=== PATIENT | male | born 1945 | race Caucasian/White ===

== ENCOUNTER 2016-03-14 21:05 | Emergency (ER) | payer MEDICARE ==
[~2016-03-14] VITALS: Ht 175.2 cm; Wt 59.9 kg
[~2016-03-14 21:05] MED LIST: ASPIRIN81 M1 PO; ATENOLOL100 MG PO; CARAFATE1 G1 PO; CARVEDILOL3.125 MG PO; GLIPIZIDE10 MG PO; GLIPIZIDE5 MG PO; LISINOPRIL/HCTZ1 TA2 PO; MELOXICAM7.5 MG PO; METFORMIN1000 MG PO; MOBIC7.5 MG PO; NIACIN500 MG PO; PLAVIX75 M1 PO; PRAVASTATIN SOD40 MG PO; PREDNICOT20 MG PO; VICODIN 5/500 505 MG PO; VITAMIN D400 I1 PO; WARFARIN SOD5 MG PO; WARFARIN SODIUM6 MG PO; ZESTRIL10 MG PO; ZESTRIL20 MG PO; ZOCOR5 MG PO
[2016-03-14] MEDS ORDERED: ZESTRIL20 MG PO (21:18)
[2016-03-14] MEDS ORDERED: METFORMIN500 MG PO (21:19)
[2016-03-14] MEDS ORDERED: COUMADIN2.5 MG PO (21:20)
[2016-03-14] MEDS ORDERED: COUMADIN5 M2 PO (21:20)
[2016-03-14] MEDS ORDERED: PROAIR HFA8.5 GM INH (21:21)
[2016-03-14] MEDS ORDERED: SYMBICORT1 AE1 INH (21:21)
[2016-03-14 21:29] LABS: BASO # 0.1 10*3/uL (0.0-0.1); BASO % 0.6 % (0.0-1.0); EOS # 0.3 10*3/uL (0.0-0.4); EOS % 3.4 % (1.0-4.0); HEMATOCRIT 38.2 % (42.0-52.0); HEMOGLOBIN 12.6 g/dl (14.0-18.0); LYMPH # 2.1 10*3/uL (1.3-4.4); LYMPH % 26.3 % (27.0-41.0); MEAN CELL VOLUME 91.6 fl (80.0-94.0); MEAN CORPUSCULAR HGB 30.2 pg (27.0-31.0); MEAN PLATELET VOLUME 9.2 fl (9.6-12.3); MONO # 0.7 10*3/uL (0.1-1.0); MONO % 8.6 % (3.0-9.0); NEUT # 4.8 10*3/uL (2.3-7.9); NEUT % 60.7 % (47.0-73.0); PLATELET COUNT AUTOMATED 191 10*3/uL (130-400); RED BLOOD COUNT 4.17 10*6/uL (4.50-5.90); RED CELL DISTRI WIDTH 15.5 % (0-14.5); WHITE BLOOD COUNT 7.9 10*3/uL (4.8-10.8)
[2016-03-14 21:40] LABS: INTERNATIONAL NORM RATIO 1.3 (2.0-3.5); PROTHROMBIN TIME 14.3 SECONDS (9.0-12.4)
[2016-03-14 21:41] LABS: BUN 20 mg/dl (7-24); CARBON DIOXIDE 26 mmol/L (21-32); CHLORIDE 105 mmol/L (98-107); EST GLOM FILT AFRICAN AMERICAN > 60 ml/min; GLUCOSE 141 mg/dL (65-99); POTASSIUM 4.3 mmol/L (3.5-5.1); SODIUM 141 mmol/L (136-145)
[2016-03-14] MEDS ORDERED: OCEAN104 ML NS (23:07)
[2016-03-14] MEDS ORDERED: ROBITUSSIN AC 110 ML PO (23:07)
[2016-03-14] MEDS ORDERED: AUGMENTIN 875875 MG PO (23:07)
[2016-04-10] MEDS ORDERED: LASIX40 MG PO (20:46)
[2016-04-10] MEDS ORDERED: PANTOPRAZOLE SO40 MG PO (20:47)
[2016-04-10] MEDS ORDERED: ALDACTONE25 M1 PO (20:47)
[2016-04-10] MEDS ORDERED: TOPROL XL50 M1 PO (20:47)
== END 2016-03-14 23:35 | disposition home or self-care (01) ==
LOC: ED 21:05
PROVIDERS: Emergency Medicine Emergency Medical Services
DX: R04.0 Epistaxis (principal); D68.8 Other specified coagulation defects; I48.91 Unspecified atrial fibrillation; F17.200 Nicotine dependence, unspecified, uncomplicated; Z79.01 Long term (current) use of anticoagulants; Z79.899 Other long term (current) drug therapy

== ENCOUNTER → 2017-06-05 | Outpatient (CLI) | payer OTHER ==
[~2017-06-05] MED LIST changes: +ALDACTONE25 M1 PO; +AUGMENTIN 875875 MG PO; +COUMADIN2.5 MG PO; +COUMADIN5 M2 PO; +LASIX40 MG PO; +METFORMIN500 MG PO; +OCEAN104 ML NS; +PANTOPRAZOLE SO40 MG PO; +PROAIR HFA8.5 GM INH; +ROBITUSSIN AC 110 ML PO; +SYMBICORT1 AE1 INH; +TOPROL XL50 M1 PO
[2017-06-05 09:41] LABS: ALBUMIN 3.6 gm/dl (3.1-4.5); BUN 12 mg/dl (7-24); CHLORIDE 102 mmol/L (98-107); CREATININE 0.88 mg/dL (0.70-1.30); PHOSPHOROUS 3.3 mg/dL (2.5-4.9); POTASSIUM 3.7 mmol/L (3.5-5.1); SODIUM 140 mmol/L (136-145)
[2017-06-05 10:05] LABS: INTERNATIONAL NORM RATIO 2.5 (2.0-3.5)
== END | disposition home or self-care (01) ==
LOC: LAB 08:53
PROVIDERS: Internal Medicine
DX: I25.810 Atherosclerosis of coronary artery bypass graft(s) without angina pectoris (principal); N18.2 Chronic kidney disease, stage 2 (mild); E11.22 Type 2 diabetes mellitus with diabetic chronic kidney disease; Z79.01 Long term (current) use of anticoagulants

== ENCOUNTER → 2017-07-29 | Outpatient (CLI) | payer OTHER ==
[2017-07-29 10:38] LABS: INTERNATIONAL NORM RATIO 1.8 (2.0-3.5)
== END | disposition home or self-care (01) ==
LOC: LAB 09:58
PROVIDERS: Internal Medicine
DX: I25.810 Atherosclerosis of coronary artery bypass graft(s) without angina pectoris (principal); Z79.01 Long term (current) use of anticoagulants

== ENCOUNTER → 2017-09-03 | Outpatient (CLI) | payer OTHER ==
[2017-09-03 11:08] LABS: INTERNATIONAL NORM RATIO 2.3 (2.0-3.5)
== END | disposition home or self-care (01) ==
LOC: LAB 10:15
PROVIDERS: Internal Medicine
DX: I25.810 Atherosclerosis of coronary artery bypass graft(s) without angina pectoris (principal); Z79.01 Long term (current) use of anticoagulants

== ENCOUNTER → 2017-10-08 | Outpatient (CLI) | payer OTHER ==
[2017-10-08 11:22] LABS: INTERNATIONAL NORM RATIO 1.8 (2.0-3.5)
== END | disposition home or self-care (01) ==
LOC: LAB 10:28
PROVIDERS: Internal Medicine
DX: I25.810 Atherosclerosis of coronary artery bypass graft(s) without angina pectoris (principal); Z79.01 Long term (current) use of anticoagulants

== ENCOUNTER → 2017-12-11 | Outpatient (CLI) | payer OTHER ==
[2017-12-11 11:02] LABS: BASO % 0.5 % (0.0-1.0); EOS # 0.2 10*3/uL (0.0-0.4); EOS % 1.8 % (1.0-4.0); HEMATOCRIT 41.5 % (42.0-52.0); HEMOGLOBIN 13.3 g/dl (14.0-18.0); LYMPH # 2.1 10*3/uL (1.3-4.4); LYMPH % 26.1 % (27.0-41.0); MEAN CELL VOLUME 95.6 fl (80.0-94.0); MEAN CORPUSCULAR HGB 30.6 pg (27.0-31.0); MEAN PLATELET VOLUME 9.5 fl (9.6-12.3); MONO # 0.7 10*3/uL (0.1-1.0); MONO % 8.5 % (3.0-9.0); NEUT # 5.1 10*3/uL (2.3-7.9); NEUT % 62.7 % (47.0-73.0); PLATELET COUNT AUTOMATED 203 10*3/uL (130-400); RED BLOOD COUNT 4.34 10*6/uL (4.50-5.90); WHITE BLOOD COUNT 8.2 10*3/uL (4.8-10.8)
[2017-12-11 11:37] LABS: ALBUMIN 3.8 gm/dl (3.1-4.5); ALKALINE PHOSPHATASE 67 U/L (45-117); BILIRUBIN, DIRECT < 0.1 mg/dL (0.0-0.2); BUN 18 mg/dl (7-24); CHLORIDE 104 mmol/L (98-107); CHOLESTEROL 115 mg/dL (<200); CREATININE 0.96 mg/dL (0.70-1.30); HDL CHOLESTEROL 38 mg/dl (40-60); LDL CHOLESTEROL 62 mg/dL (9-159); PHOSPHOROUS 3.2 mg/dL (2.5-4.9); SGOT/AST 11 IU/L (3-35); SGPT/ALT 14 U/L (12-78); SODIUM 139 mmol/L (136-145); TOTAL PROTEIN 7.7 gm/dL (6.4-8.2); TRIGLYCERIDES 73 mg/dl (<150); VLDL CHOLESTEROL 15 mg/dL (6-40)
[2017-12-11 11:47] LABS: INTERNATIONAL NORM RATIO 1.7 (2.0-3.5)
== END | disposition home or self-care (01) ==
LOC: LAB 10:32
PROVIDERS: Internal Medicine
DX: I25.810 Atherosclerosis of coronary artery bypass graft(s) without angina pectoris (principal); N18.2 Chronic kidney disease, stage 2 (mild); I70.212 Atherosclerosis of native arteries of extremities with intermittent claudication, left leg; Z79.01 Long term (current) use of anticoagulants

== ENCOUNTER → 2017-12-30 | Outpatient (CLI) | payer OTHER ==
[2017-12-30 12:12] LABS: INTERNATIONAL NORM RATIO 1.8 (2.0-3.5)
== END | disposition home or self-care (01) ==
LOC: LAB 10:23
PROVIDERS: Internal Medicine
DX: I25.810 Atherosclerosis of coronary artery bypass graft(s) without angina pectoris (principal); Z79.01 Long term (current) use of anticoagulants

== ENCOUNTER → 2018-04-23 | Outpatient (CLI) | payer OTHER ==
[2018-04-23 10:00] LABS: INTERNATIONAL NORM RATIO 2.3 (2.0-3.5)
== END | disposition home or self-care (01) ==
LOC: LAB 08:49
PROVIDERS: Internal Medicine
DX: I25.810 Atherosclerosis of coronary artery bypass graft(s) without angina pectoris (principal); Z79.01 Long term (current) use of anticoagulants

== ENCOUNTER → 2018-12-01 | Outpatient (CLI) | payer OTHER | END | disposition home or self-care (01) | LOC: LAB 09:58 | PROVIDERS: Internal Medicine | DX: I25.810 Atherosclerosis of coronary artery bypass graft(s) without angina pectoris (principal); Z79.01 Long term (current) use of anticoagulants ==

== ENCOUNTER 2019-03-19 00:23 | Inpatient (IN) | payer OTHER ==
[2019-03-19] VITALS (25 sets, daily range): BP systolic 90–137; BP diastolic 41–80
[~2019-03-19] VITALS: Ht 175.2 cm; Wt 59.2 kg
[2019-03-19 00:51] LABS: BASO # 0.1 10*3/uL (0.0-0.1); BASO % 0.3 % (0.0-1.0); EOS % 0.1 % (1.0-4.0); HEMATOCRIT 26.1 % (42.0-52.0); HEMOGLOBIN 8.3 g/dl (14.0-18.0); LYMPH # 1.2 10*3/uL (1.3-4.4); LYMPH % 7.1 % (27.0-41.0); MEAN CELL VOLUME 89.1 fl (80.0-94.0); MEAN CORPUSCULAR HGB 28.3 pg (27.0-31.0); MEAN CORPUSCULAR HGB CONC 31.8 g/dl (33.0-37.0); MEAN PLATELET VOLUME 9.5 fl (9.6-12.3); MONO # 1.3 10*3/uL (0.1-1.0); MONO % 7.6 % (3.0-9.0); NEUT # 14.7 10*3/uL (2.3-7.9); NEUT % 83.7 % (47.0-73.0); PLATELET COUNT AUTOMATED 551 10*3/uL (130-400); RED BLOOD COUNT 2.93 10*6/uL (4.50-5.90); RED CELL DISTRI WIDTH 15.3 % (0-14.5); WHITE BLOOD COUNT 17.5 10*3/uL (4.8-10.8)
[2019-03-19 01:11] LABS: ALBUMIN 2.2 gm/dl (3.1-4.5); ALKALINE PHOSPHATASE 89 U/L (45-117); BUN 18 mg/dl (7-24); CHLORIDE 96 mmol/L (98-107); CREATININE 0.91 mg/dL (0.70-1.30); POTASSIUM 3.1 mmol/L (3.5-5.1); SGOT/AST 34 IU/L (3-35); SGPT/ALT 23 U/L (12-78); SODIUM 132 mmol/L (136-145); TOTAL PROTEIN 7.2 gm/dL (6.4-8.2)
[2019-03-19 01:18] LABS: TROPONIN I 0.022 ng/ml (<0.045)
[2019-03-19 01:21] LABS: ACT PARTIAL THROMBO TIME 92.2 SECONDS (20.0-32.1); INTERNATIONAL NORM RATIO 9.3 (2.0-3.5)
--- NOTE | 2019-03-19 01:23 | NUR ---
ED DOC WAS NOTIFIED OF THE CRITICAL APTT, PT, AND INR OF TH PATIENT.
--- NOTE | 2019-03-19 02:40 | NUR ---
A 73, admitted to , under the services of SHELLY Savage DO with a diagnosis of COUMADIN TOXICITY, CHF, PNEUMONIA, ATRIAL FIB WITH RVR. Chief complaint is SOB. Patient arrived via bed from ER. Monitor applied. Initial assessment completed. Vital signs taken and recorded. SHELLY SAVAGE DO notified of admission to the unit. Orders received. See assessment for past medical history, medications and allergies. Patient and/or family oriented to unit. [facility]U visitation policy reviewed. Clothing/patient valuable form completed. LUCIANO GUTIERREZ
--- NOTE | 2019-03-19 03:10 | NUR ---
CALLED DR LOPEZ TO INFORM HER THAT THE MEDICATION LIST IS UPDATED PER THE PT KNOWLEDGE, WILL CALL SATISH IN THE MORNING FOR UPDATED LIST. ALSO TOLD HER THAT PT HR IS 98 PER CM. WILL CONTINUE TO MONITOR
--- NOTE | 2019-03-19 04:01 | NUR ---
CALLED DR LOPEZ REFERING THE PATIENTS TROPONIN LEVEL READING 0.155. SHE STATES 'OK' AND WANTS ME TO TELL CARDIOLOGY WHEN I CALL FOR THE CONSULT
--- NOTE | 2019-03-19 04:02 | NUR ---
CONSULT FOR DR RANDHAWA LEFT ON ANSWERING SERVICE. UPDATED THEM OF TROPONIN LEVELS ALONG WITH REASON FOR CONSULT
[2019-03-19 06:51] LABS: HEMATOCRIT 23.6 % (42.0-52.0); HEMOGLOBIN 7.6 g/dl (14.0-18.0); MEAN CELL VOLUME 89.4 fl (80.0-94.0); MEAN CORPUSCULAR HGB 28.8 pg (27.0-31.0); MEAN CORPUSCULAR HGB CONC 32.2 g/dl (33.0-37.0); MEAN PLATELET VOLUME 9.6 fl (9.6-12.3); PLATELET COUNT AUTOMATED 462 10*3/uL (130-400); RED BLOOD COUNT 2.64 10*6/uL (4.50-5.90); RED CELL DISTRI WIDTH 15.3 % (0-14.5); WHITE BLOOD COUNT 14.3 10*3/uL (4.8-10.8)
[2019-03-19 07:05] LABS: BUN 22 mg/dl (7-24); CHLORIDE 96 mmol/L (98-107); CREATININE 0.88 mg/dL (0.70-1.30); POTASSIUM 3.8 mmol/L (3.5-5.1); SODIUM 132 mmol/L (136-145)
[2019-03-19 07:09] LABS: CHOLESTEROL 83 mg/dL (<200); HDL CHOLESTEROL 9 mg/dl (40-60); LDL CHOLESTEROL 55 mg/dL (9-159); TRIGLYCERIDES 93 mg/dl (<150); VLDL CHOLESTEROL 19 mg/dL (6-40)
[2019-03-19 07:19] LABS: INTERNATIONAL NORM RATIO > 9.3 (2.0-3.5)
--- NOTE | 2019-03-19 07:33 | NUR ---
NOTIFIED OF CRITICAL ANTICOAGs. SAID HE WOULD LOOK AT THE CHART. INFORMED THAT 1MG OF VITAMIN K WAS GIVEN THIS AM ARND 0330.
[2019-03-19 07:40] LABS: PLATELET SUFFICIENCY NORMAL (NORMAL); TOTAL CELLS COUNTED 100 #CELLS
--- NOTE | 2019-03-19 08:01 | NUR ---
NOTIFIED OF [facility] . SAID TO NOTIFY CARDIO. MESSAGE LEFT WITH BETSY IN CARDIO. SAID SHE WOULD NOTIFY AND ASK HIM TO CALL ME. AWAITING CALL BACK.
--- NOTE | 2019-03-19 08:14 | NUR ---
TRANSFERRED TO ICCU-5 WITHOUT INCIDENT DUE TO ELEVATED TROPONINS. VSS. REPORT GIVEN TO BINU CHENEY.
--- NOTE | 2019-03-19 08:20 | NUR ---
RECEIVED VIA BED FROM FOR ELEVATED TROPONINS. ON ARRIVAL HE DENIES PAIN "EXCEPT I'M HUNGRY". NO ACUTE RESPIRATORY DISTRESS. MONITOR ATRIAL FLUTTER, VR MID 90'S. SCD'S IN PLACE. PPP. ECHO WAS DONE PRIOR TO HIS TRANSFER. SEE ALL APPROPRIATE INTERVENTIONS.
[2019-03-19 11:35] LABS: INTERNATIONAL NORM RATIO > 9.3 (2.0-3.5)
--- NOTE | 2019-03-19 12:32 | NUR ---
PT HAS BEEN ACCOMPANIED TO RADIOLOGY FOR CT OF CHEST.DR KEVIN HAS BEEN NOTIFIED OF ELEVATED INR. DR STAHL HAS VISITED. VITAMIN K BY MOUTH AND SUBQ HAS BEEN GIVEN FOR ELEVATED INR.
--- NOTE | 2019-03-19 12:51 | NUR ---
Patient identified by arm band by myself and Nicky Leyva. Vital signs recorded. Blood unit number [id number] verified by 2 R.N.'s. I.V. site satisfactory. Unit #1 started at a KVO rate with Normal Saline. BINU FISH L
--- NOTE | 2019-03-19 13:06 | NUR ---
PT IN CONSTANT ATTENDANCE FIRST 15 MINUTES OF TRANSFUSION. NO APPARAENT REACTION. INFUSION RATE INCREASED TO 125/HR.
--- NOTE | 2019-03-19 18:53 | NUR ---
TRANSFUSION WAS COMPLETE AT 1838. PT UP TO [facility] CUSHING – CUSHING TO VOID AND HAD TINY FORMED STOOL. SPECIMEN FOR OCCULT BLOOD OBTAINED AND TAKEN TO THE LAB. HE'S SITTING AT THE SIDE OF THE BED, DOING CROSSWORD PUZZLES.
--- NOTE | 2019-03-19 20:20 | NUR ---
1939 RESTING IN BED WITH HOB ELEVATED. SIDE RAILS UP X'S 2. ALERT AND ORIENTED. STATES " I FEEL A HECK OF A LOT BETTER THAN I DID WHEN I CAME IN." PULSE OX 95% ON 2L 02 VIA NC. HEP LOCK'S INTACT X'S 2 RAN AND ZHANNA. NO DISTRESS NOTED. AFEBRILE.
[2019-03-19 22:22] LABS: BASO % 0.1 % (0.0-1.0); HEMATOCRIT 28.2 % (42.0-52.0); HEMOGLOBIN 9.3 g/dl (14.0-18.0); LYMPH # 0.9 10*3/uL (1.3-4.4); LYMPH % 4.7 % (27.0-41.0); MEAN CELL VOLUME 89.2 fl (80.0-94.0); MEAN CORPUSCULAR HGB 29.4 pg (27.0-31.0); MEAN PLATELET VOLUME 9.9 fl (9.6-12.3); MONO # 0.8 10*3/uL (0.1-1.0); MONO % 4.3 % (3.0-9.0); NEUT # 16.4 10*3/uL (2.3-7.9); NEUT % 89.5 % (47.0-73.0); PLATELET COUNT AUTOMATED 453 10*3/uL (130-400); RED BLOOD COUNT 3.16 10*6/uL (4.50-5.90); RED CELL DISTRI WIDTH 14.7 % (0-14.5); WHITE BLOOD COUNT 18.3 10*3/uL (4.8-10.8)
--- NOTE | 2019-03-19 22:24 | NUR ---
2200 MEDICATED WITH RESTORIL PO REQUESTED FOR SLEEP. WILL MONITOR.
[2019-03-19 22:31] LABS: INTERNATIONAL NORM RATIO 3.7 (2.0-3.5)
[2019-03-20] VITALS: BP 113/63
--- NOTE | 2019-03-20 00:23 | NUR ---
EARLIER RESTORIL EFFECTIVE. RESTING IN BED WITH EYES CLOSED. APPEARS TO BE SLEEPING. 02 INTACT @ 2L. PULSE OX 100%.
[2019-03-20 04:00] VITALS: BP 116/61
[2019-03-20 05:16] LABS: HEMATOCRIT 30.1 % (42.0-52.0); MEAN CORPUSCULAR HGB 28.9 pg (27.0-31.0); MEAN CORPUSCULAR HGB CONC 33.2 g/dl (33.0-37.0); MEAN PLATELET VOLUME 9.8 fl (9.6-12.3); PLATELET COUNT AUTOMATED 525 10*3/uL (130-400); RED BLOOD COUNT 3.46 10*6/uL (4.50-5.90); RED CELL DISTRI WIDTH 14.9 % (0-14.5); WHITE BLOOD COUNT 20.8 10*3/uL (4.8-10.8)
[2019-03-20 05:31] LABS: BUN 31 mg/dl (7-24); CHLORIDE 99 mmol/L (98-107); CREATININE 0.79 mg/dL (0.70-1.30); POTASSIUM 3.7 mmol/L (3.5-5.1); SODIUM 134 mmol/L (136-145)
[2019-03-20 05:43] LABS: INTERNATIONAL NORM RATIO 2.3 (2.0-3.5)
--- NOTE | 2019-03-20 06:12 | NUR ---
SLEPT WELL THIS SHIFT. 02 INTACT. MOIST COUGH CONT. REMAINS AFEBRILE. RESPIRATIONS EASY. NO DISTRESS NOTED. CONDITION GUARDED.
[2019-03-20 06:35] LABS: PLATELET SUFFICIENCY HIGH (NORMAL); TOTAL CELLS COUNTED 100 #CELLS
[2019-03-20 06:36] LABS: POLYCHROMASIA SLIGHT
[2019-03-20 06:37] LABS: OVALOCYTES FEW
[2019-03-20 08:00] VITALS: BP 105/69
[2019-03-20 12:00] VITALS: BP 106/61
--- NOTE | 2019-03-20 13:48 | NUR ---
Director Vaccine in to talk to patient. Patient states lives at home with his and [id number]. There are 6-8 steps in the home. Physician: Dr. Chris Desai [facility]acy: [facility] Home health services: none Patient's level of ADLs: MINIMAL ASSIST Patient has working utilities: yes DME: cane, would like a nebulizer Follow-up physician's appointment after d/c: will be made by the hospitalist nurse director upon discharge Does patient want to access PORTAL?: no Discharge plan discussed with patient. He lives at home with his and [id number]-vet. He is independent in his ADLs and ambulates with a cane. Discussed home health care services and he denies any home needs at this time. When medically stable he will be discharged to home. He would like a nebulizer for home use if needed. He states he will take a taxi home. NOHELIA CRAWFORD
--- NOTE | 2019-03-20 14:11 | NUR ---
I LEFT A MESSAGE ON DR RIBERA'S VOICE MAIL TO MAKE HIM AWARE OF NEW CONSULT ORDER.
[2019-03-20 16:00] VITALS: BP 120/57
[2019-03-20 20:00] VITALS: BP 139/56
--- NOTE | 2019-03-20 22:15 | NUR ---
MEDICATED WITH RESTORIL PER PRN ORDER FOR C/O INSOMNIA.
[2019-03-21] VITALS: BP 157/61
--- NOTE | 2019-03-21 | NUR ---
RSTORIL EFFECTIVE FOR INSOMNIA.
[2019-03-21 03:57] VITALS: BP 108/49
[2019-03-21 06:13] LABS: HEMATOCRIT 29.1 % (42.0-52.0); HEMOGLOBIN 9.4 g/dl (14.0-18.0); MEAN CELL VOLUME 89.3 fl (80.0-94.0); MEAN CORPUSCULAR HGB 28.8 pg (27.0-31.0); MEAN CORPUSCULAR HGB CONC 32.3 g/dl (33.0-37.0); MEAN PLATELET VOLUME 9.8 fl (9.6-12.3); PLATELET COUNT AUTOMATED 495 10*3/uL (130-400); RED BLOOD COUNT 3.26 10*6/uL (4.50-5.90); RED CELL DISTRI WIDTH 15.2 % (0-14.5)
[2019-03-21 06:26] LABS: BUN 27 mg/dl (7-24); CHLORIDE 97 mmol/L (98-107); CREATININE 0.75 mg/dL (0.70-1.30); POTASSIUM 4.1 mmol/L (3.5-5.1); SODIUM 134 mmol/L (136-145)
[2019-03-21 06:59] LABS: TOTAL CELLS COUNTED 100 #CELLS
[2019-03-21 07:00] LABS: OVALOCYTES FEW; PLATELET SUFFICIENCY HIGH (NORMAL); POLYCHROMASIA SLIGHT
[2019-03-21 07:06] LABS: INTERNATIONAL NORM RATIO 1.7 (2.0-3.5)
[2019-03-21 08:00] VITALS: BP 102/52
--- NOTE | 2019-03-21 09:20 | NUR ---
MESSAGE LEFT ON DR GARCIA CELL STEPHEN AM LABS PT REMAINS NPO
[2019-03-21 12:00] VITALS: BP 109/62
[2019-03-21 16:00] VITALS: BP 147/74
[2019-03-21 20:00] VITALS: BP 117/59
--- NOTE | 2019-03-21 20:00 | NUR ---
RESTING IN BED. SKIN PALE, WARM & DRY. 02 INTACT AT 1 LITERS; PULSE OX 98%. LUNGS WITH HARSH BREATH SOUNDS & SOME WHEEZES NOTED. MOIST HARSH PRODUCTIVE COUGH FOR CLEAR SPUTUM PER PT. SCD'S INTACT. HEP LOCK INTACT TO RIGHT ANTECUBITAL; SITE ASYMPTOMATIC. PT. INFORMED THAT HE BRIANA BE NPO FOR AN EGD IN THE MORNING; VERBALIZED UNDERSTANDING. CALL LIGHT WITHIN REACH.
--- NOTE | 2019-03-21 22:00 | NUR ---
BLOOD SGUAR 419; COVERAGE GIVEN PER EMAR.
[2019-03-22] VITALS (8 sets, daily range): BP systolic 102–130; BP diastolic 55–73
[2019-03-22 06:31] LABS: INTERNATIONAL NORM RATIO 1.7 (2.0-3.5)
--- NOTE | 2019-03-22 06:44 | NUR ---
BLOOD SUGAR 185; NO COVERAGE GIVEN. PT. NPO FOR EGD TODAY. GETTING BATHED AT THIS TIME BY PA. VERY SOB WITH ANY EXERTION. 02 AT 3LITERS; PULSE OX 96% HEART RATE IN THE 12O'S. WILL CONTINUE TO MONITOR. PT. VOICES NO C/O AT THIS TIME. CALL LIGHT WITHIN REACH.
[2019-03-22 07:27] LABS: HEMATOCRIT 30.1 % (42.0-52.0); HEMOGLOBIN 9.6 g/dl (14.0-18.0); MEAN CORPUSCULAR HGB 29.4 pg (27.0-31.0); MEAN CORPUSCULAR HGB CONC 31.9 g/dl (33.0-37.0); MEAN PLATELET VOLUME 9.9 fl (9.6-12.3); PLATELET COUNT AUTOMATED 476 10*3/uL (130-400); RED BLOOD COUNT 3.27 10*6/uL (4.50-5.90); RED CELL DISTRI WIDTH 15.3 % (0-14.5); WHITE BLOOD COUNT 17.3 10*3/uL (4.8-10.8)
--- NOTE | 2019-03-22 07:30 | NUR ---
PT SLEEPING IN BED. RESP-EASY AND REGULAR. OXYGEN IN USE. NO C/O AT THIS TIME. CALL LIGHT IN REACH. SEE SHIFT ASSESSMENT.
[2019-03-22 07:32] LABS: ALBUMIN 2.2 gm/dl (3.1-4.5); ALKALINE PHOSPHATASE 84 U/L (45-117); BUN 25 mg/dl (7-24); CHLORIDE 99 mmol/L (98-107); CREATININE 0.61 mg/dL (0.70-1.30); POTASSIUM 4.8 mmol/L (3.5-5.1); SGOT/AST 16 IU/L (3-35); SGPT/ALT 29 U/L (12-78); SODIUM 136 mmol/L (136-145); TOTAL PROTEIN 5.8 gm/dL (6.4-8.2)
[2019-03-22 07:52] LABS: OVALOCYTES FEW; PLATELET SUFFICIENCY HIGH (NORMAL); POLYCHROMASIA SLIGHT; ROULEAUX SLIGHT; SCHISTOCYTES FEW; TOTAL CELLS COUNTED 100 #CELLS
--- NOTE | 2019-03-22 13:00 | NUR ---
PT RESTING IN BED. RESP-EASY AND REGULAR. OXYGEN IN USE. BSG-281, SEE EMAR. TOLERATED ROUTINE MEDS WITH NO PROBLEM. NO C/O AT THIS TIME. CALL LIGHT IN REACH.
--- NOTE | 2019-03-22 17:00 | NUR ---
PT RESTING IN BED. BSG-201, SEE EMAR. NO C/O AT THIS TIME. CALL LIGHT IN REACH. SEE SHIFT ASSESSMENT.
--- NOTE | 2019-03-22 22:30 | NUR ---
IV SITE BLEEDING IN THE LEFT AC. SITE DISCONTINUED. RIGHT AC MAINTAINED. CALL LIGHT WITHIN REACH
--- NOTE | 2019-03-22 22:47 | NUR ---
24 HR chart check completed.
[2019-03-23] VITALS: BP 115/56
--- NOTE | 2019-03-23 03:23 | NUR ---
PATIENT SLEEPING, NO DISTRESS NOTED. CALL LIGHT WITHIN REACH, WILL MONITOR
[2019-03-23 06:18] LABS: BASO % 0.1 % (0.0-1.0); HEMATOCRIT 33.3 % (42.0-52.0); HEMOGLOBIN 10.4 g/dl (14.0-18.0); LYMPH # 0.9 10*3/uL (1.3-4.4); LYMPH % 5.1 % (27.0-41.0); MEAN CELL VOLUME 91.5 fl (80.0-94.0); MEAN CORPUSCULAR HGB 28.6 pg (27.0-31.0); MEAN CORPUSCULAR HGB CONC 31.2 g/dl (33.0-37.0); MEAN PLATELET VOLUME 9.5 fl (9.6-12.3); MONO # 0.6 10*3/uL (0.1-1.0); MONO % 3.3 % (3.0-9.0); NEUT # 16.4 10*3/uL (2.3-7.9); NEUT % 89.9 % (47.0-73.0); PLATELET COUNT AUTOMATED 479 10*3/uL (130-400); RED BLOOD COUNT 3.64 10*6/uL (4.50-5.90); RED CELL DISTRI WIDTH 15.4 % (0-14.5); WHITE BLOOD COUNT 18.3 10*3/uL (4.8-10.8)
[2019-03-23 06:41] LABS: BUN 26 mg/dl (7-24); CHLORIDE 98 mmol/L (98-107); CREATININE 0.75 mg/dL (0.70-1.30); POTASSIUM 4.6 mmol/L (3.5-5.1); SODIUM 132 mmol/L (136-145)
[2019-03-23 07:50] VITALS: BP 120/72
[2019-03-23 08:00] VITALS: BP 120/72
--- NOTE | 2019-03-23 08:00 | NUR ---
PT RESTING IN BED EATING BREAKFAST. RESP-EASY AND REGULAR. NO SOB NOTED ON ROOM AIR. NO C/O AT THIS TIME. CALL LIGHT IN REACH. STUDENT NURSES WITH PT TODAY ALSO.
--- NOTE | 2019-03-23 08:00 | NUR ---
AM ASSESSMENT COMPLETED AND CHARTED. PT IS PLEASANT AND COOPERATIVE. PT IS RESTING IN BED COMFORTABLY. PT HAS NO COMPLAINTS AT THIS TIME. CALL LIGHT WITHIN REACH. EZEQUIEL NAJERACC
[2019-03-23 08:06] LABS: INTERNATIONAL NORM RATIO 1.5 (2.0-3.5)
--- NOTE | 2019-03-23 09:00 | NUR ---
Die Designer Apprentice in to see patient. No new needs or request at this time. Discussed home health care services and he denies any home needs. When medically stable he will be discharged to home. Hgb 10.4. EGD 03/22 showed gastritis, lesions, and hiatal hernia.
--- NOTE | 2019-03-23 10:04 | NUR ---
PT HAS NO COMPLAINTS AT THIS TIME. RESTING COMFORTABLY IN BED. EZEQUIEL VELAZQUEZ [facility] [place]
[2019-03-23 12:00] VITALS: BP 107/59; BP 137/77
--- NOTE | 2019-03-23 12:00 | NUR ---
PATIENT IS SITTING UP IN BED. NO COMPLAINTS AT THIS TIME. WAITING FOR LUNCH TO ARRIVE. EZEQUIEL VELAZQUEZ LADY
--- NOTE | 2019-03-23 13:13 | NUR ---
PT IS RESTING IN BED. NO COMPLAINTS THIS TIME. EZEQUIEL VELAZQUEZ SPLADYCC
--- NOTE | 2019-03-23 13:17 | NUR ---
PT REFUSED BATH. EZEQUIEL VELAZQUEZ SPNRCC
--- NOTE | 2019-03-23 14:45 | NUR ---
GAVE REPORT TO 5E NURSE. PT GOING TO MS FLOOR.
--- NOTE | 2019-03-23 19:00 | NUR ---
ASSUMED CARE FOR THIS PT AT THIS TIME. CONTINUES TO C/O POON. RESTING QUIETLY IN BED. CALL LIGHT IN REACH.
[2019-03-23 20:00] VITALS: BP 132/61
[2019-03-24] VITALS (7 sets, daily range): BP systolic 111–142; BP diastolic 60–75
[2019-03-24 08:07] LABS: BASO % 0.1 % (0.0-1.0); HEMATOCRIT 34.3 % (42.0-52.0); HEMOGLOBIN 10.9 g/dl (14.0-18.0); LYMPH # 1.4 10*3/uL (1.3-4.4); LYMPH % 7.8 % (27.0-41.0); MEAN CELL VOLUME 90.7 fl (80.0-94.0); MEAN CORPUSCULAR HGB 28.8 pg (27.0-31.0); MEAN CORPUSCULAR HGB CONC 31.8 g/dl (33.0-37.0); MEAN PLATELET VOLUME 9.5 fl (9.6-12.3); MONO # 0.7 10*3/uL (0.1-1.0); MONO % 3.8 % (3.0-9.0); NEUT # 15.9 10*3/uL (2.3-7.9); NEUT % 86.9 % (47.0-73.0); PLATELET COUNT AUTOMATED 456 10*3/uL (130-400); RED BLOOD COUNT 3.78 10*6/uL (4.50-5.90); RED CELL DISTRI WIDTH 15.4 % (0-14.5); WHITE BLOOD COUNT 18.3 10*3/uL (4.8-10.8)
--- NOTE | 2019-03-24 08:15 | NUR ---
DR PRINCE CALLED RE: CHARTED HR 120 AT 4AM. VITALS TAKEN AGAIN HR 90-120'S. DR FAIR IN TO SEE PT AND ASKED CARDIO TO BE CALLED RE: HR AND STRESS TEST. DR CASTILLO CALLED VIA OFFICE, WILL AWAIT RETURN CALL
[2019-03-24 08:17] LABS: INTERNATIONAL NORM RATIO 1.4 (2.0-3.5)
--- NOTE | 2019-03-24 08:31 | NUR ---
SPOKE WITH DR CASTILOL RE: HR 120'S. ORDERS RECEIVED TO GIVE TOPROL XL PRIOR TO STRESS TEST.
[2019-03-24 08:39] LABS: BUN 23 mg/dl (7-24); CHLORIDE 99 mmol/L (98-107); CREATININE 0.76 mg/dL (0.70-1.30); POTASSIUM 3.7 mmol/L (3.5-5.1); SODIUM 136 mmol/L (136-145)
--- NOTE | 2019-03-24 10:22 | NUR ---
RN INTERNAL MEDICINE received voicemail from [facility] nurse case manager asking for update on patients status. RN INTERNAL MEDICINE return call to confidential voicemail [phone]. RN INTERNAL MEDICINE left message with update. -PABLO Bone
--- NOTE | 2019-03-24 10:30 | NUR ---
Functional Support Analyst in to see patient. He is not currently in his room. Will follow up at a later time.
--- NOTE | 2019-03-24 10:35 | NUR ---
PT OFF FLOOR FOR STRESS TEST.
--- NOTE | 2019-03-24 11:39 | NUR ---
INFORMED CONSENT SIGNED FOR LEXISCAN STRESS TEST WITH DR. CASTILLO. RESTING EKG A-FIB, HR 122, BP 138/80. PULSE OX 97% AND HARSH BREATH SOUNDS NOTED ON RIGHT SIDE AND CLEAR ON LEFT. COMPLETED ONE MINUTE OF LEXISCAN PROTOCOL RECEIVING LEXISCAN 0.4MG OVER 10 SECONDS. RARE PVC'S NOTED WITH NO ST CHANGES. PT C/O SOB. LAST RECOVER HR 112, BP 126/69. WAITING NUCLEAR SCANNING IN STABLE CONDITION.
--- NOTE | 2019-03-24 13:40 | NUR ---
Claims Adjudicator in to see patient. Discussed short term SNF and he refuses. Discussed home health care services and he denies any home needs. When medically stable he will be discharged to home.
--- NOTE | 2019-03-24 14:10 | NUR ---
SPOKE WITH DR CASTILLO RE: DIGOXIN IV ORDERED WHILE PT WAS AT STRESS TEST, AND IT WASN'T GIVEN YET. ORDERS RECIEVED TO GIVE NOW. NOTIFIED HR 103-106. HE STATES OK TO GIVE TO HELP WITH HR LATER TODAY PT HAS BEEN 120'S.
--- NOTE | 2019-03-24 14:33 | NUR ---
SPOKE WITH DR FAIR RE: ORDERS FROM DR CASTILLO FOR IV DIGOXIN AND PT BEING MED SURG. ORDERS RECEIVED TO PUT PT N THE TRUCK SUPERVISOR.
--- NOTE | 2019-03-24 15:03 | NUR ---
RN TRAVELING APPLIED PER ORDERS HR AIBB HR 92-96.
--- NOTE | 2019-03-24 15:13 | NUR ---
SPOKE WITH DR FAIR, PT HR 90'S. ORDERS RECEIVED TO HOLD IV DIGOXIN AT THIS TIME. CALL IF HR INCREASES.
--- NOTE | 2019-03-24 19:00 | NUR ---
ASSUMED CARE FOR THIS PT AT THIS TIME. PT AWAKE IN BED WATCHING TV. PT STATES HE IS FEELING BETTER AND IS HOPING TO GO HOME TOMORROW. CALL LIGHT IN REACH.
--- NOTE | 2019-03-24 22:58 | NUR ---
24 HR chart check completed.
[2019-03-25] VITALS: BP 130/68
[2019-03-25 06:55] LABS: BASO % 0.1 % (0.0-1.0); HEMATOCRIT 33.5 % (42.0-52.0); HEMOGLOBIN 10.9 g/dl (14.0-18.0); LYMPH # 1.2 10*3/uL (1.3-4.4); LYMPH % 7.5 % (27.0-41.0); MEAN CELL VOLUME 90.5 fl (80.0-94.0); MEAN CORPUSCULAR HGB 29.5 pg (27.0-31.0); MEAN CORPUSCULAR HGB CONC 32.5 g/dl (33.0-37.0); MEAN PLATELET VOLUME 9.7 fl (9.6-12.3); MONO # 0.5 10*3/uL (0.1-1.0); MONO % 2.9 % (3.0-9.0); NEUT # 14.1 10*3/uL (2.3-7.9); NEUT % 88.1 % (47.0-73.0); PLATELET COUNT AUTOMATED 379 10*3/uL (130-400); RED CELL DISTRI WIDTH 15.4 % (0-14.5)
[2019-03-25 07:11] LABS: BUN 26 mg/dl (7-24); CHLORIDE 98 mmol/L (98-107); POTASSIUM 3.6 mmol/L (3.5-5.1); SODIUM 135 mmol/L (136-145)
[2019-03-25 07:18] LABS: CREATININE 0.76 mg/dL (0.70-1.30)
[2019-03-25 08:00] VITALS: BP 110/64
--- NOTE | 2019-03-25 10:30 | NUR ---
Director Of Intelligence in to see patient. Discussed short term SNF and home health care services and he continues to refuse either. When medically stable he will be discharged to home.
[2019-03-25 12:00] VITALS: BP 117/67
--- NOTE | 2019-03-25 12:10 | NUR ---
IV DIGOXIN GIVEN PER ORDERS. HR UPPER 80-110'S. WILL MONITOR
--- NOTE | 2019-03-25 12:35 | NUR ---
DR RIBERA ON UNIT. SPOKE WITH HIM RE: COUMADIN ON HOLD R/T EGD FINDINGS AND COUMADIN TOXIC ON ADMISSION. NOTIFIED OF INR YESTERDAY 03/24/19 OF 1.4. HE STATES OK TO RESUME COUAMDIN. DR GARRISON NOTIFIED.
[2019-03-25 16:00] VITALS: BP 134/54
[2019-03-25 20:00] VITALS: BP 115/59
[2019-03-26] VITALS: BP 129/58
--- NOTE | 2019-03-26 02:24 | NUR ---
24 HR chart check completed.
[2019-03-26 06:15] LABS: HEMATOCRIT 36.2 % (42.0-52.0); HEMOGLOBIN 11.3 g/dl (14.0-18.0); MEAN CELL VOLUME 92.8 fl (80.0-94.0); MEAN CORPUSCULAR HGB CONC 31.2 g/dl (33.0-37.0); MEAN PLATELET VOLUME 9.7 fl (9.6-12.3); PLATELET COUNT AUTOMATED 364 10*3/uL (130-400); RED CELL DISTRI WIDTH 15.4 % (0-14.5); WHITE BLOOD COUNT 15.6 10*3/uL (4.8-10.8)
[2019-03-26 06:19] LABS: BUN 26 mg/dl (7-24); CHLORIDE 100 mmol/L (98-107); CREATININE 0.84 mg/dL (0.70-1.30); POTASSIUM 3.9 mmol/L (3.5-5.1); SODIUM 138 mmol/L (136-145)
[2019-03-26 07:03] LABS: PLATELET SUFFICIENCY NORMAL (NORMAL); POLYCHROMASIA SLIGHT; SCHISTOCYTES FEW; TOTAL CELLS COUNTED 100 #CELLS
[2019-03-26 08:00] VITALS: BP 111/62
--- NOTE | 2019-03-26 08:30 | NUR ---
Patient resting quietly with no c/o discomfort. Respirations easy and regular. Vital signs stable. No overt distress. KOFI SOLOMON R
[2019-03-26] MEDS ORDERED: VENTOLIN 02.5 MG/3 M INH (10:40)
[2019-03-26] MEDS ORDERED: Carafate1 GM/10 ML PO (10:40)
[2019-03-26] MEDS ORDERED: PREDNISONE10 MG PO (10:40)
[2019-03-26] MEDS ORDERED: NEBULIZER (10:40)
[2019-03-26] MEDS ORDERED: LOSARTAN POTASS50 M1 PO (10:40)
[2019-03-26] MEDS ORDERED: DIGOXIN125 MCG PO (10:40)
[2019-03-26] MEDS ORDERED: XARE20MG PO (10:40)
[2019-03-26] MEDS ORDERED: METOPROLOL SUCC25 M2 PO (10:40)
--- NOTE | 2019-03-26 11:29 | NUR ---
OT EVAL COMPLETED AT BS. OT LOW COMPLEXITY DETERMINED BY CHART REVIEW AND OT EVALUATION. RECOMMEND SERVICES
[2019-03-26 12:00] VITALS: BP 110/64
--- NOTE | 2019-03-26 15:02 | NUR ---
Discharge instructions reviewed with patient/family. Patient receptive and verbalizes understanding. Follow-up care arranged. Written instructions given to patient/family. KOFI SOLOMON
== END 2019-03-26 15:02 | disposition home or self-care (01) | DRG 871 ==
LOC: ED 00:23 → 5E 01:52 → 4E 01:52 → ICCU 01:52 → EDHOLD 01:52 → 4E 02:07 → ICCU 08:16 → 4E 03-21 14:29 → 5E 03-23 14:00
PROVIDERS: Emergency Medicine; Family Medicine; Internal Medicine; Student in an Organized Health Care Education/Training Program; ADMIT Internal Medicine
PROC: 30233N1 Transfusion of Nonautologous Red Blood Cells into Peripheral Vein, Percutaneous Approach (ICD-10-PCS; principal; 2019-03-19)
PROC: 0DB68ZX Excision of Stomach, Via Natural or Artificial Opening Endoscopic, Diagnostic (ICD-10-PCS; 2019-03-22)
PROC: 4A02XM4 Measurement of Cardiac Total Activity, External Approach (ICD-10-PCS; 2019-03-24)
PROC: 3E073KZ Introduction of Other Diagnostic Substance into Coronary Artery, Percutaneous Approach (ICD-10-PCS; 2019-03-24)
DX: A41.9 Sepsis, unspecified organism (principal); J18.9 Pneumonia, unspecified organism; I50.33 Acute on chronic diastolic (congestive) heart failure; E43 Unspecified severe protein-calorie malnutrition; I21.4 Non-ST elevation (NSTEMI) myocardial infarction; K29.01 Acute gastritis with bleeding; E87.1 Hypo-osmolality and hyponatremia; D62 Acute posthemorrhagic anemia; D68.9 Coagulation defect, unspecified; I25.810 Atherosclerosis of coronary artery bypass graft(s) without angina pectoris; T45.511A Poisoning by anticoagulants, accidental (unintentional), initial encounter; K44.9 Diaphragmatic hernia without obstruction or gangrene; D47.3 Essential (hemorrhagic) thrombocythemia; E87.6 Hypokalemia; E87.8 Other disorders of electrolyte and fluid balance, not elsewhere classified; R73.9 Hyperglycemia, unspecified; F17.210 Nicotine dependence, cigarettes, uncomplicated; R65.20 Severe sepsis without septic shock; I48.0 Paroxysmal atrial fibrillation; I73.9 Peripheral vascular disease, unspecified; K21.9 Gastro-esophageal reflux disease without esophagitis; M48.00 Spinal stenosis, site unspecified; I95.9 Hypotension, unspecified; J44.9 Chronic obstructive pulmonary disease, unspecified; I25.2 Old myocardial infarction; Z79.01 Long term (current) use of anticoagulants; Z95.2 Presence of prosthetic heart valve; Z71.6 Tobacco abuse counseling; Z95.810 Presence of automatic (implantable) cardiac defibrillator; Z79.899 Other long term (current) drug therapy; Z83.3 Family history of diabetes mellitus; Z82.49 Family history of ischemic heart disease and other diseases of the circulatory system

== ENCOUNTER 2020-04-19 19:30 | Inpatient (IN) | payer OTHER ==
[~2020-04-19] VITALS: Ht 177.8 cm; Wt 46.3 kg
[~2020-04-19 19:30] MED LIST changes: +Carafate1 GM/10 ML PO; +DIGOXIN125 MCG PO; +LOSARTAN POTASS50 M1 PO; +METOPROLOL SUCC25 M2 PO; +NEBULIZER; +PREDNISONE10 MG PO; +VENTOLIN 02.5 MG/3 M INH; +XARE20MG PO
[2020-04-19 19:36] VITALS: BP 130/90
[2020-04-19 20:12] LABS: EOS % 0.3 % (1.0-4.0); HEMATOCRIT 33.9 % (42.0-52.0); LYMPH # 0.8 10*3/uL (1.3-4.4); LYMPH % 12.3 % (27.0-41.0); MEAN CELL VOLUME 92.6 fl (80.0-94.0); MEAN CORPUSCULAR HGB 28.7 pg (27.0-31.0); MEAN PLATELET VOLUME 8.9 fl (9.6-12.3); MONO # 0.4 10*3/uL (0.1-1.0); MONO % 6.8 % (3.0-9.0); NEUT % 80.1 % (47.0-73.0); PLATELET COUNT AUTOMATED 204 10*3/uL (130-400); RED BLOOD COUNT 3.66 10*6/uL (4.50-5.90); RED CELL DISTRI WIDTH 16.5 % (0-14.5); WHITE BLOOD COUNT 6.3 10*3/uL (4.8-10.8)
[2020-04-19 20:25] LABS: ACT PARTIAL THROMBO TIME 32.2 SECONDS (20.0-32.1); INTERNATIONAL NORM RATIO 1.4 (2.0-3.5)
[2020-04-19 20:29] LABS: ALBUMIN 2.6 gm/dl (3.1-4.5); ALKALINE PHOSPHATASE 62 U/L (45-117); BUN 20 mg/dl (7-24); CHLORIDE 105 mmol/L (98-107); LIPASE 60 U/L (73-393); POTASSIUM 3.1 mmol/L (3.5-5.1); SGOT/AST 9 IU/L (3-35); SGPT/ALT 11 U/L (12-78); SODIUM 141 mmol/L (136-145)
[2020-04-19 20:40] LABS: TROPONIN I 0.083 ng/ml (<0.045)
[2020-04-19 21:32] LABS: BILIRUBIN Negative (Negative); BLOOD Negative (Negative); CLARITY Clear (Clear); COLOR Yellow (Yellow); GLUCOSE Negative (Negative); KETONE Negative (Negative); LEUKO ESTERASE Negative (Negative); NITRITE Negative (Negative); PH 5.5 (4.5-8.0)
[2020-04-19 21:41] LABS: BACTERIA TRACE; EPITHELIAL CELLS 0-2; RBC 0-2 rbc/hpf (0-2)
[2020-04-19 22:13] LABS: ABG BASE EXCESS 5.6 mmol/L (-2.0-2.0); ARTERIAL BLOOD GAS PH 7.465 (7.35-7.45)
[2020-04-19 22:45] VITALS: BP 125/68
[2020-04-20 02:25] VITALS: BP 104/65
[2020-04-20] MEDS ORDERED: PRESERVISION A1 EAC3 PO (03:06)
[2020-04-20] MEDS ORDERED: DRONABINOL5 MG PO (03:06)
[2020-04-20] MEDS ORDERED: MIRTAZAPINE15 M2 PO (03:06)
[2020-04-20] MEDS ORDERED: DRONABINOL10 MG PO (03:07)
[2020-04-20] MEDS ORDERED: STOOL SOFT-STI1 EACH PO (03:08)
[2020-04-20] MEDS ORDERED: NITROGLYCERIN0.4 MG SL (03:08)
[2020-04-20] MEDS ORDERED: DIGOX125 MCG PO (03:09)
[2020-04-20 07:20] LABS: HEMATOCRIT 37.2 % (42.0-52.0); MEAN CELL VOLUME 94.7 fl (80.0-94.0); MEAN CORPUSCULAR HGB 28.5 pg (27.0-31.0); MEAN CORPUSCULAR HGB CONC 30.1 g/dl (33.0-37.0); MEAN PLATELET VOLUME 9.3 fl (9.6-12.3); PLATELET COUNT AUTOMATED 229 10*3/uL (130-400); RED BLOOD COUNT 3.93 10*6/uL (4.50-5.90); RED CELL DISTRI WIDTH 16.5 % (0-14.5); WHITE BLOOD COUNT 6.3 10*3/uL (4.8-10.8)
[2020-04-20 07:31] LABS: ALBUMIN 2.7 gm/dl (3.1-4.5); ALKALINE PHOSPHATASE 67 U/L (45-117); BUN 20 mg/dl (7-24); CHLORIDE 105 mmol/L (98-107); CREATININE 0.56 mg/dL (0.70-1.30); POTASSIUM 3.8 mmol/L (3.5-5.1); SGOT/AST 12 IU/L (3-35); SGPT/ALT 16 U/L (12-78); SODIUM 142 mmol/L (136-145); TOTAL PROTEIN 6.5 gm/dL (6.4-8.2)
[2020-04-20 07:37] LABS: ACANTHOCYTES FEW; PLATELET SUFFICIENCY NORMAL (NORMAL); TOTAL CELLS COUNTED 100 #CELLS
[2020-04-20 07:38] LABS: OVALOCYTES FEW; SCHISTOCYTES FEW
[2020-04-20 08:00] VITALS: BP 111/80
[2020-04-20 12:00] VITALS: BP 110/60
[2020-04-20 16:00] VITALS: BP 125/67
[2020-04-20 20:00] VITALS: BP 113/70
[2020-04-21] VITALS: BP 106/59
[2020-04-21 06:11] LABS: HEMATOCRIT 33.2 % (42.0-52.0); LYMPH # 0.7 10*3/uL (1.3-4.4); LYMPH % 8.8 % (27.0-41.0); MEAN CELL VOLUME 93.8 fl (80.0-94.0); MEAN CORPUSCULAR HGB 28.2 pg (27.0-31.0); MEAN CORPUSCULAR HGB CONC 30.1 g/dl (33.0-37.0); MEAN PLATELET VOLUME 9.7 fl (9.6-12.3); MONO # 0.4 10*3/uL (0.1-1.0); MONO % 4.6 % (3.0-9.0); NEUT # 7.2 10*3/uL (2.3-7.9); PLATELET COUNT AUTOMATED 209 10*3/uL (130-400); RED BLOOD COUNT 3.54 10*6/uL (4.50-5.90); RED CELL DISTRI WIDTH 16.4 % (0-14.5); WHITE BLOOD COUNT 8.3 10*3/uL (4.8-10.8)
[2020-04-21 06:32] LABS: ALBUMIN 2.5 gm/dl (3.1-4.5); BUN 22 mg/dl (7-24); CHLORIDE 104 mmol/L (98-107); CREATININE 0.55 mg/dL (0.70-1.30); POTASSIUM 3.8 mmol/L (3.5-5.1); SGOT/AST 11 IU/L (3-35); SGPT/ALT 13 U/L (12-78); SODIUM 140 mmol/L (136-145)
[2020-04-21 06:39] LABS: ALKALINE PHOSPHATASE 56 U/L (45-117); FREE T4 0.73 ng/dl (0.76-1.46); TOTAL PROTEIN 5.8 gm/dL (6.4-8.2)
[2020-04-21 07:02] LABS: INTERNATIONAL NORM RATIO 1.6 (2.0-3.5)
[2020-04-21 08:00] VITALS: BP 114/56
[2020-04-21 12:00] VITALS: BP 104/61
[2020-04-21 16:00] VITALS: BP 127/74
[2020-04-21 17:23] LABS: ABG BASE EXCESS 6.8 mmol/L (-2.0-2.0); ARTERIAL BLOOD GAS PH 7.398 (7.35-7.45); ARTERIAL BLOOD GAS PO2 165.7 (80-90)
[2020-04-21 20:00] VITALS: BP 104/60
[2020-04-22] VITALS: BP 105/60
[2020-04-22 06:16] LABS: BUN 24 mg/dl (7-24); CHLORIDE 101 mmol/L (98-107); CREATININE 0.59 mg/dL (0.70-1.30); POTASSIUM 3.5 mmol/L (3.5-5.1); SODIUM 140 mmol/L (136-145)
[2020-04-22 08:00] VITALS: BP 100/61
[2020-04-22 12:00] VITALS: BP 92/47
[2020-04-22 16:00] VITALS: BP 101/59
[2020-04-22 20:00] VITALS: BP 105/60
[2020-04-23] VITALS: BP 98/56
[2020-04-23 04:00] VITALS: BP 110/70
[2020-04-23 08:00] VITALS: BP 104/60
[2020-04-23 12:00] VITALS: BP 107/52
[2020-04-23 16:00] VITALS: BP 102/50
[2020-04-23 20:00] VITALS: BP 106/55
[2020-04-24] VITALS: BP 108/47
[2020-04-24 05:28] LABS: ALBUMIN 2.3 gm/dl (3.1-4.5); ALKALINE PHOSPHATASE 60 U/L (45-117); BUN 21 mg/dl (7-24); CHLORIDE 98 mmol/L (98-107); CREATININE 0.51 mg/dL (0.70-1.30); POTASSIUM 3.6 mmol/L (3.5-5.1); SGOT/AST 19 IU/L (3-35); SGPT/ALT 22 U/L (12-78); SODIUM 137 mmol/L (136-145); TOTAL PROTEIN 5.6 gm/dL (6.4-8.2)
[2020-04-24 06:12] LABS: BASO % 0.1 % (0.0-1.0); EOS # 0.1 10*3/uL (0.0-0.4); EOS % 0.9 % (1.0-4.0); HEMATOCRIT 28.4 % (42.0-52.0); LYMPH # 0.9 10*3/uL (1.3-4.4); LYMPH % 12.2 % (27.0-41.0); MEAN CELL VOLUME 94.7 fl (80.0-94.0); MEAN CORPUSCULAR HGB 28.3 pg (27.0-31.0); MEAN CORPUSCULAR HGB CONC 29.9 g/dl (33.0-37.0); MEAN PLATELET VOLUME 9.9 fl (9.6-12.3); MONO # 0.5 10*3/uL (0.1-1.0); MONO % 6.2 % (3.0-9.0); NEUT # 6.1 10*3/uL (2.3-7.9); NEUT % 80.2 % (47.0-73.0); PLATELET COUNT AUTOMATED 166 10*3/uL (130-400); RED CELL DISTRI WIDTH 16.3 % (0-14.5); WHITE BLOOD COUNT 7.6 10*3/uL (4.8-10.8)
[2020-04-24 08:00] VITALS: BP 100/48
[2020-04-24 12:00] VITALS: BP 101/50
[2020-04-24 16:00] VITALS: BP 101/47
[2020-04-24 20:00] VITALS: BP 111/49
[2020-04-25] VITALS: BP 105/56
[2020-04-25 06:14] LABS: BASO % 0.2 % (0.0-1.0); EOS % 0.6 % (1.0-4.0); HEMATOCRIT 29.6 % (42.0-52.0); LYMPH # 0.9 10*3/uL (1.3-4.4); LYMPH % 13.3 % (27.0-41.0); MEAN CELL VOLUME 94.9 fl (80.0-94.0); MEAN CORPUSCULAR HGB 28.5 pg (27.0-31.0); MEAN CORPUSCULAR HGB CONC 30.1 g/dl (33.0-37.0); MEAN PLATELET VOLUME 9.9 fl (9.6-12.3); MONO # 0.5 10*3/uL (0.1-1.0); MONO % 7.5 % (3.0-9.0); NEUT # 5.2 10*3/uL (2.3-7.9); NEUT % 78.1 % (47.0-73.0); PLATELET COUNT AUTOMATED 167 10*3/uL (130-400); RED BLOOD COUNT 3.12 10*6/uL (4.50-5.90); RED CELL DISTRI WIDTH 16.5 % (0-14.5); WHITE BLOOD COUNT 6.6 10*3/uL (4.8-10.8)
[2020-04-25 06:19] LABS: ALBUMIN 2.5 gm/dl (3.1-4.5); BUN 20 mg/dl (7-24); CHLORIDE 98 mmol/L (98-107); CREATININE 0.51 mg/dL (0.70-1.30); POTASSIUM 3.8 mmol/L (3.5-5.1); SGOT/AST 22 IU/L (3-35); SGPT/ALT 23 U/L (12-78); SODIUM 140 mmol/L (136-145)
[2020-04-25 06:22] LABS: ALKALINE PHOSPHATASE 62 U/L (45-117); TOTAL PROTEIN 5.9 gm/dL (6.4-8.2)
[2020-04-25 08:00] VITALS: BP 109/58
[2020-04-25 12:00] VITALS: BP 108/50
[2020-04-25 16:00] VITALS: BP 105/44
[2020-04-25 20:00] VITALS: BP 108/52
[2020-04-26] VITALS: BP 108/51
[2020-04-26 08:00] VITALS: BP 96/61
[2020-04-26 12:00] VITALS: BP 105/45
[2020-04-26 16:00] VITALS: BP 98/57
[2020-04-26 20:00] VITALS: BP 121/73
[2020-04-27] VITALS (9 sets, daily range): BP systolic 91–139; BP diastolic 53–76
[2020-04-28] VITALS: BP 111/69
[2020-04-28 06:36] LABS: BASO % 0.3 % (0.0-1.0); EOS % 0.3 % (1.0-4.0); HEMATOCRIT 28.6 % (42.0-52.0); LYMPH # 1.3 10*3/uL (1.3-4.4); MEAN CELL VOLUME 92.9 fl (80.0-94.0); MEAN CORPUSCULAR HGB 28.2 pg (27.0-31.0); MEAN CORPUSCULAR HGB CONC 30.4 g/dl (33.0-37.0); MEAN PLATELET VOLUME 10.2 fl (9.6-12.3); MONO # 0.5 10*3/uL (0.1-1.0); MONO % 8.8 % (3.0-9.0); NEUT # 3.9 10*3/uL (2.3-7.9); NEUT % 67.3 % (47.0-73.0); PLATELET COUNT AUTOMATED 201 10*3/uL (130-400); RED BLOOD COUNT 3.08 10*6/uL (4.50-5.90); RED CELL DISTRI WIDTH 16.9 % (0-14.5); WHITE BLOOD COUNT 5.8 10*3/uL (4.8-10.8)
[2020-04-28 06:58] LABS: ALBUMIN 2.5 gm/dl (3.1-4.5); BUN 17 mg/dl (7-24); CHLORIDE 98 mmol/L (98-107); CREATININE 0.55 mg/dL (0.70-1.30); POTASSIUM 4.4 mmol/L (3.5-5.1); SGOT/AST 28 IU/L (3-35); SGPT/ALT 36 U/L (12-78); SODIUM 138 mmol/L (136-145)
[2020-04-28 07:00] LABS: ALKALINE PHOSPHATASE 79 U/L (45-117); TOTAL PROTEIN 6.1 gm/dL (6.4-8.2)
[2020-04-28 08:00] VITALS: BP 116/52
[2020-04-28 10:08] LABS: ACID FAST SPEC PROCESSING Concentration (.)
[2020-04-28 12:00] VITALS: BP 106/63
[2020-04-28] MEDS ORDERED: FLUCONAZOLE100 MG PO (13:14)
[2020-04-28] MEDS ORDERED: FUROSEMIDE40 MG PO (13:14)
[2020-06-10 13:06] LABS: ACID FAST CULTURE Negative (.)
== END 2020-04-28 16:15 | DRG 177 ==
LOC: ED 19:30 → 4E 23:28 → EDHOLD 23:28 → 4E 04-20 00:34
PROVIDERS: Family Medicine; Internal Medicine; Internal Medicine Critical Care Medicine; Physician Assistant; Registered Nurse; ADMIT Family Medicine; ATTEND Family Medicine
PROC: BD11YZZ Fluoroscopy of Esophagus using Other Contrast (ICD-10-PCS; 2020-04-26)
PROC: 0BC98ZZ Extirpation of Matter from Lingula Bronchus, Via Natural or Artificial Opening Endoscopic (ICD-10-PCS; principal; 2020-04-27)
PROC: 0BC48ZZ Extirpation of Matter from Right Upper Lobe Bronchus, Via Natural or Artificial Opening Endoscopic (ICD-10-PCS; 2020-04-27)
PROC: 0BC88ZZ Extirpation of Matter from Left Upper Lobe Bronchus, Via Natural or Artificial Opening Endoscopic (ICD-10-PCS; 2020-04-27)
PROC: 0BC58ZZ Extirpation of Matter from Right Middle Lobe Bronchus, Via Natural or Artificial Opening Endoscopic (ICD-10-PCS; 2020-04-27)
PROC: 0BC38ZZ Extirpation of Matter from Right Main Bronchus, Via Natural or Artificial Opening Endoscopic (ICD-10-PCS; 2020-04-27)
PROC: 0BC78ZZ Extirpation of Matter from Left Main Bronchus, Via Natural or Artificial Opening Endoscopic (ICD-10-PCS; 2020-04-27)
PROC: 0BC68ZZ Extirpation of Matter from Right Lower Lobe Bronchus, Via Natural or Artificial Opening Endoscopic (ICD-10-PCS; 2020-04-27)
PROC: 0BCB8ZZ Extirpation of Matter from Left Lower Lobe Bronchus, Via Natural or Artificial Opening Endoscopic (ICD-10-PCS; 2020-04-27)
PROC: 0BC18ZZ Extirpation of Matter from Trachea, Via Natural or Artificial Opening Endoscopic (ICD-10-PCS; 2020-04-27)
PROC: 0HBRXZZ Excision of Toe Nail, External Approach (ICD-10-PCS; 2020-04-27)
PROC: 0HBRXZZ Excision of Toe Nail, External Approach (ICD-10-PCS; 2020-04-27)
PROC: 0HBRXZZ Excision of Toe Nail, External Approach (ICD-10-PCS; 2020-04-27)
PROC: 0HBRXZZ Excision of Toe Nail, External Approach (ICD-10-PCS; 2020-04-27)
PROC: 0HBRXZZ Excision of Toe Nail, External Approach (ICD-10-PCS; 2020-04-27)
PROC: 0HBRXZZ Excision of Toe Nail, External Approach (ICD-10-PCS; 2020-04-27)
PROC: 0HBRXZZ Excision of Toe Nail, External Approach (ICD-10-PCS; 2020-04-27)
PROC: 0HBRXZZ Excision of Toe Nail, External Approach (ICD-10-PCS; 2020-04-27)
PROC: 0HBRXZZ Excision of Toe Nail, External Approach (ICD-10-PCS; 2020-04-27)
PROC: 0HBRXZZ Excision of Toe Nail, External Approach (ICD-10-PCS; 2020-04-27)
DX: J69.0 Pneumonitis due to inhalation of food and vomit (principal); I50.33 Acute on chronic diastolic (congestive) heart failure; E43 Unspecified severe protein-calorie malnutrition; J96.01 Acute respiratory failure with hypoxia; T17.590A Other foreign object in bronchus causing asphyxiation, initial encounter; I48.92 Unspecified atrial flutter; J44.0 Chronic obstructive pulmonary disease with (acute) lower respiratory infection; B37.0 Candidal stomatitis; J44.1 Chronic obstructive pulmonary disease with (acute) exacerbation; I43 Cardiomyopathy in diseases classified elsewhere; Z68.1 Body mass index [BMI] 19.9 or less, adult; Z20.822 Contact with and (suspected) exposure to COVID-19; E87.6 Hypokalemia; I48.0 Paroxysmal atrial fibrillation; J15.6 Pneumonia due to other Gram-negative bacteria; R91.1 Solitary pulmonary nodule; D64.9 Anemia, unspecified; T07.XXXA Unspecified multiple injuries, initial encounter; F17.210 Nicotine dependence, cigarettes, uncomplicated; M48.00 Spinal stenosis, site unspecified; I25.10 Atherosclerotic heart disease of native coronary artery without angina pectoris; E11.65 Type 2 diabetes mellitus with hyperglycemia; J15.4 Pneumonia due to other streptococci; E11.51 Type 2 diabetes mellitus with diabetic peripheral angiopathy without gangrene; I11.0 Hypertensive heart disease with heart failure; B35.1 Tinea unguium; G47.00 Insomnia, unspecified; K21.9 Gastro-esophageal reflux disease without esophagitis; R62.7 Adult failure to thrive; X58.XXXA Exposure to other specified factors, initial encounter; Y92.89 Other specified places as the place of occurrence of the external cause; Y93.89 Activity, other specified; Y99.8 Other external cause status; Z95.810 Presence of automatic (implantable) cardiac defibrillator; Z95.1 Presence of aortocoronary bypass graft; Z90.49 Acquired absence of other specified parts of digestive tract; Z79.899 Other long term (current) drug therapy; Z79.84 Long term (current) use of oral hypoglycemic drugs; Z82.49 Family history of ischemic heart disease and other diseases of the circulatory system; Z79.01 Long term (current) use of anticoagulants; Z83.3 Family history of diabetes mellitus

== ENCOUNTER 2020-05-06 14:46 | Emergency (ER) | payer OTHER ==
[~2020-05-06 14:46] MED LIST changes: +DIGOX125 MCG PO; +DRONABINOL10 MG PO; +DRONABINOL5 MG PO; +FLUCONAZOLE100 MG PO; +FUROSEMIDE40 MG PO; +MIRTAZAPINE15 M2 PO; +NITROGLYCERIN0.4 MG SL; +PRESERVISION A1 EAC3 PO; +STOOL SOFT-STI1 EACH PO
== END 2020-05-06 16:53 ==
LOC: ED 14:46
DX: J96.10 Chronic respiratory failure, unspecified whether with hypoxia or hypercapnia (principal); E11.9 Type 2 diabetes mellitus without complications; I11.0 Hypertensive heart disease with heart failure; I50.9 Heart failure, unspecified; F17.200 Nicotine dependence, unspecified, uncomplicated; Z79.899 Other long term (current) drug therapy; Z98.890 Other specified postprocedural states; Z95.2 Presence of prosthetic heart valve; Z95.1 Presence of aortocoronary bypass graft; Z90.49 Acquired absence of other specified parts of digestive tract

== ENCOUNTER 2020-05-07 06:06 | Emergency (ER) | payer OTHER ==
[~2020-05-07] VITALS: Wt 39.9 kg
== END 2020-05-07 06:21 ==
LOC: ED 06:06
DX: I46.9 Cardiac arrest, cause unspecified (principal); E11.9 Type 2 diabetes mellitus without complications; I11.0 Hypertensive heart disease with heart failure; I50.9 Heart failure, unspecified; M19.90 Unspecified osteoarthritis, unspecified site; F17.210 Nicotine dependence, cigarettes, uncomplicated; Z79.899 Other long term (current) drug therapy; Z95.810 Presence of automatic (implantable) cardiac defibrillator; Z90.49 Acquired absence of other specified parts of digestive tract